=== PATIENT | female | born 1950 | race Caucasian/White ===

== ENCOUNTER 2016-11-16 11:00 | Emergency (ER) | payer MEDICARE ==
[~2016-11-16] VITALS: Ht 167.6 cm; Wt 90.8 kg
[~2016-11-16 11:00] MED LIST: ATOR40TA64 PO; CETI10CA19 PO; CITA-108 PO; DEXL60CA9 PO; DICY10CA52 PO; LEVO100T83 PO; LOSA1TAB18 PO; NITR100C4 PO; POLY255P2 PO; POTA20TA10 PO; TOPI200T45 PO; TRAZ-58 PO
--- OUTSIDE RECORDS SUMMARY | 2016-11-16 11:04 | XMS REPORT | Continuity of Care Document ---
Author Author [facility] Organization [facility] Address Unknown Phone Unavailable Care Team Providers Care Senior Laboratory Technician Name Role Phone SHAMEKA THAKKAR DO Primary Care Physician [phone] Insurance Providers Guarantor Gerald Wynne Address [address] [place] [address] H Email [email or web address] Payer Medicareadunc healthra o Policy Number [id number] Subscriber's Name Gerald Wynne Relationship 18 Self Group Number [id number] Effective Date 16 Chief Complaint and Reason for Visit Chief Complaint Female Urogenital Problems Reason for Visit [id number] Problems Past Problems Medical Problem Onset Date UTI (urinary tract infection) Unknown Medications Current Home Medications Medication Dose Units Route Directions Days Qty Instructions Start Date Atorvastatin Calcium 40 Mg Tablet 1 Tab Oral Bedtime 10/23/15 Cetirizine Hcl (Zyrtec) 10 Mg Capsule 1 Cap Oral Daily 10/23/15 Citalopram Hydrobromide (Celexa) 40 Mg Tablet 60 Mg Oral Daily Dexlansoprazole (Dexilant) 60 Mg Cap.bp 11/15/16 Dicyclomine Hcl 10 Mg Capsule 10 Mg Oral Four Times Daily Levothyroxine Sodium (Synthroid) 100 Mcg Tablet 100 Mcg Oral Daily 08/08/09 Losartan/Hydrochlorothiazide (Hyzaar 50-12.5 Tablet) 1 Tab Tablet 1 Tab Oral Daily 08/08/09 Nitrofurantoin Monohyd/M-Cryst (Macrobid 100 Mg Capsule) 100 Mg Capsule 1 Cap Oral Twice Daily With Meals 5 Days 10 Capsule Take 1 (100 mg) capsules , by mouth, twice daily with meals. Supervising physician Dr. Sergei Franz [facility] [address] [facility] [phone] Polyethylene Glycol 3350 255 Gm Powder 1 Dose Oral Twice A Day 1054 10/23/15 Potassium Chloride (Klor-Con M20) 20 Meq Tablet 11/15/16 Topiramate 200 Mg Tablet 1 Tab Oral Bedtime 30 10/23/15 Trazodone Hcl 100 Mg Tablet 225 Mg Oral Bedtime 08/08/09 Past Home Medications Medication Directions Ordered Status Calcium Carbonate (Gaviscon) 500 Mg Tab.chew, 500 Mg Oral As Needed 01/31/12 Discontinued Esomeprazole Mag Trihydrate (Nexium) 40 Mg Capsule.dr, 40 Mg Oral Daily 08/08 Discontinued Meclizine Hcl (Antivert) 12.5 Mg Tablet, 12.5 Mg Oral As Needed 01/31/12 Discontinued Psyllium Husk/Ca Carbonate (Metamucil Plus Calcium Capsule) 1 Cap Capsule, 5 Cap Oral As Needed 08/08/09 Discontinued Social History Social History Problem Response Recorded Date/Time Onset Date Status Chewing Tobacco Status No 10/02/2012 7:33am Not Applicable Not Applicable Hx Substance Use No 10/23/2015 10:01am Not Applicable Not Applicable Hx Alcohol Use No 10/23/2015 10:01am Not Applicable Not Applicable Has the pt used tobacco in the last 12 months No 10/23/2015 10:01am Not Applicable Not Applicable Hospital Discharge Instructions No hospital discharge instructions. Plan of Care Discharge Date 11/15/16 6:10pm Disposition 01 DISCHARGED HOME, SELF-CARE Condition at Discharge Stable Instructions/Education Provided Urinary Tract Infection in Women (ED) Prescriptions See Medication Section Referrals SHAMEKA THAKKAR DO Address: [address] [place] [address] JYOTHI PACHECO [phone] Additional Instructions/Education Take Macrobid as directed. Continue with increased water intake. Follow with your primary care provider or urologist next week. Functional Status No functional status results. Allergies, Adverse Reactions, Alerts Allergen Type Severity Reaction Status Last Updated No Known Drug Allergies Allergy Unknown Active 11/15/16 Immunizations Query Response on File Recorded Date/Time Hx Influenza Vaccination No 10/23/15 10:01am Hx Pneumococcal Vaccination No 10/23/15 10:01am Hx Tetanus, Diptheria, Pertussis Yes 01/31/12 8:13pm Hx Influenza Vaccination No 10/23/15 10:01am Hx Tetanus Diptheria N UNSURE 01/31/12 8:03pm Hx Tetanus, Diptheria, Pertussis Yes 01/31/12 8:13pm Vital Signs Acute Vital Signs Vital Response Date/Time Temperature (Fahrenheit) 97.2 deg F (96.8 - 99.1) 11/15/2016 6:00pm Temperature (Calculated Celsius) 36.28378 degrees C (36.0 - 37.3) 11/15/2016 6:00pm Pulse Rate (adult) 94 bpm (60 - 100) 11/15/2016 6:00pm Respiratory Rate 20 breaths/min (10 - 20) 11/15/2016 6:00pm O2 Sat by Pulse Oximetry 96 % (90 - 100) 11/15/2016 6:00pm Blood Pressure 116/79 mm Hg 11/15/2016 6:00pm Height (Inches) 66.00 inches 11/15/2016 6:00pm Weight (Kilograms) 95.700 kg 11/15/2016 6:00pm Body Mass Index (BMI) 34.0 11/15/2016 6:00pm Results Laboratory Results Test Name Result Units Flags Reference Collection Date/Time Result Date/ Time Comments Urine Collection Type CLEANCATCH-MIDSTREAM 11/15/2016 6:00pm 2016 6:03pm Urine Color DK YELLOW YELLOW 11/15/2016 6:00pm 11/15/2016 6:03pm Urine Turbidity CLOUDY CLEAR 11/15/2016 6:00pm 11/15/2016 6:03pm Urine Specific Jeannette 1.020 1.015-1.025 11/15/2016 6:00pm 2016 6:03pm Urine pH 5.0 5.0-8.0 11/15/2016 6:00pm 11/15/2016 6:03pm Urine Leukocyte Esterase 2+ A NEGATIVE 11/15/2016 6:00pm 11/15/2016 6: 03pm Urine Nitrite POSITIVE A NEGATIVE 11/15/2016 6:00pm 11/15/2016 6:03pm Urine Protein NEGATIVE NEGATIVE 11/15/2016 6:00pm 11/15/2016 6:03pm Urine Glucose (UA) NEGATIVE NEGATIVE 11/15/2016 6:00pm 11/15/2016 6: 03pm Urine Ketones NEGATIVE NEGATIVE 11/15/2016 6:00pm 11/15/2016 6:03pm Urine Urobilinogen NORMAL EU/DL NORMAL 11/15/2016 6:00pm 11/15/2016 6: 03pm Urine Bilirubin NEGATIVE NEGATIVE 11/15/2016 6:00pm 11/15/2016 6: 03pm Urine Blood 1+ A NEGATIVE 11/15/2016 6:00pm 11/15/2016 6:03pm Procedures No known history of procedures. Encounters Encounter Location Arrival/Admit Date Discharge/Depart Date Attending Provider Departed Emergency Room [facility] 11/15/16 5:40pm 11/15/16 6: 10pm SAM APPIAH APRN Recent Diagnosis
[2016-11-16 11:05] VITALS: Ht 167.6 cm; Wt 90.8 kg
--- OUTSIDE RECORDS SUMMARY | 2016-11-16 11:05 | XMS REPORT | Continuity of Care Document ---
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 12/21/2014 Malcolm Beltre 401.9 HYPERTENSION NOS 12/21/2014 Malcolm Beltre 530.81 ESOPHAGEAL REFLUX 12/21/2014 Malcolm Beltre 553.3 DIAPHRAGMATIC HERNIA 12/21/2014 Malcolm Beltre 564.1 IRRITABLE BOWEL SYNDROME 12/21/2014 Malcolm Beltre 724.02 SPINAL STENOSIS, LUMBAR REG, W/OUT NEUROGENIC QUINN 12/21/2014 Malcolm Beltre 738.4 ACQ SPONDYLOLISTHESIS 12/21/2014 Malcolm Beltre 788.20 RETENTION OF URINE NOS 07/15/2016 Chris Glass DO Z12.2 ENCNTR SCREEN FOR MALIGNANT NEOPLASM OF 07/25/2016 Chris Glass DO Z12.2 ENCNTR SCREEN FOR MALIGNANT NEOPLASM OF 07/30/2016 Chris Glass DO Z12.2 ENCNTR SCREEN FOR MALIGNANT NEOPLASM OF Procedures Code Description Performed By Performed On 78.69 REMOVE INT FIX DEVIC NEC Pernell Isidro MD 12/21/2014 80.51 EXCISION INTERVERT DISC Malcolm Beltre 12/21/2014 81.06 LUMBAR LUMBOSACRAL FUSION OF ANTERIOR COLUMN/BARB Malcolm Beltre 12/21/2014 81.62 FUSION/REFUS OF 2-3 VERTEBRAE Malcolm Beltre 12/21/2014 84.51 INSERTION OF INTERBODY SPINAL FUSION DEVICE Pernell Isidro MD 12/21/2014 Results Test Result Range MRSA SURVEILLANCE SCREEN - 12/14/14 12:01 Microbiology POTASSIUM - 12/21/14 10:35 POTASSIUM 3.7 mmol/L 3.5-5.3 HGB HCT - 12/21/14 17:10 MEAN CELL VOLUME 90.1 fl 80.0-100.0 HEMOGLOBIN 12.5 gm/dL 12.0-16.0 HEMATOCRIT 36.3 % 37.0-47.0 CBC - 12/22/14 05:37 MEAN CELL HGB 31.0 pg 27.0-33.0 MEAN CELL HGB CONCENTRATION 34.4 g/dL 32.0-37.0 MEAN CELL VOLUME 90.1 fl 80.0-100.0 RED BLOOD CELL 3.94 m/cumm 4.00-6.00 RED CELL DISTRIBUTION WIDTH 13.3 % 11.0- 15.6 WHITE BLOOD CELL 13.3 k/cumm 5.0-10.0 HEMOGLOBIN 12.2 gm/dL 12.0-16.0 HEMATOCRIT 35.5 % 37.0-47.0 PLATELET COUNT 231 k/cumm 150-400 METABOLIC PANEL, BASIC - 12/22/14 05:37 POTASSIUM 3.8 mmol/L 3.5-5.3 EST GFR (MDRD) > 60 mL/min > 59 ANION GAP 6 mmol/L 5-15 EST CrCl (CG) > 60 mL/min > 59 GLUCOSE 130 mg/dL 70-99 CALCIUM 8.4 mg/dL 8.5-10.1 BLOOD UREA NITROGEN 8 mg/dL 7-20 CREATININE 0.7 mg/dL 0.6-1.0 SODIUM 143 mmol/L 135-148 CHLORIDE 109 mmol/L 98-110 CARBON DIOXIDE 28 mmol/L 21-32 CBC W/DIFF - 12/23/14 05:33 GRANULOCYTE # 12.5 k/cumm 2.0-9.0 GRANULOCYTE % 81 % 50-75 LYMPHOCYTE # 1.2 k/cumm 1.0-4.0 LYMPHOCYTE % 8 % 20-30 MEAN CELL HGB 30.3 pg 27.0-33.0 MEAN CELL HGB CONCENTRATION 33.3 g/dL 32.0-37.0 MEAN CELL VOLUME 90.9 fl 80.0-100.0 MONOCYTE # 1.7 k/cumm 0.1-1.0 MONOCYTE % 11 % 4-6 RED BLOOD CELL 3.86 m/cumm 4.00-6.00 RED CELL DISTRIBUTION WIDTH 13.4 % 11.0- 15.6 WHITE BLOOD CELL 15.4 k/cumm 5.0-10.0 HEMOGLOBIN 11.7 gm/dL 12.0-16.0 HEMATOCRIT 35.1 % 37.0-47.0 PLATELET COUNT 202 k/cumm 150-400 RENAL FUNCTION PANEL - 12/23/14 05:33 POTASSIUM 3.3 mmol/L 3.5-5.3 EST GFR (MDRD) > 60 mL/min > 59 ANION GAP 8 mmol/L 5-15 EST CrCl (CG) > 60 mL/min > 59 GLUCOSE 132 mg/dL 70-99 CALCIUM 8.3 mg/dL 8.5-10.1 BLOOD UREA NITROGEN 7 mg/dL 7-20 CREATININE 0.9 mg/dL 0.6-1.0 SODIUM 142 mmol/L 135-148 CHLORIDE 105 mmol/L 98-110 CARBON DIOXIDE 29 mmol/L 21-32 ALBUMIN 2.8 gm/dL 3.4-5.0 PHOSPHORUS 1.4 mg/dL 2.5-4.9 MAGNESIUM - 12/23/14 05:33 MAGNESIUM 2.1 mg/dL 1.8-2.4 URINALYSIS, ROUTINE - 12/24/14 02:10 UA LEUKOCYTE ESTERASE DIPSTICK NEGATIVE NEGATIVE UA NITRITE DIPSTICK NEGATIVE NEGATIVE UA PROTEIN DIPSTICK NEGATIVE NEGATIVE UA GLUCOSE DIPSTICK NEGATIVE NEGATIVE UA KETONE DIPSTICK 1+ NEGATIVE UA UROBILINOGEN DIPSTICK NORMAL NORMAL UA BILIRUBIN DIPSTICK NEGATIVE NEGATIVE UA BLOOD DIPSTICK NEGATIVE NEGATIVE UA SPECIFIC GRAVITY 1.008 1.015-1.025 UR PH 7.0 5.0-7.0 CBC W/DIFF - 12/24/14 07:19 GRANULOCYTE # 12.2 k/cumm 2.0-9.0 GRANULOCYTE % 85 % 50-75 LYMPHOCYTE # 1.1 k/cumm 1.0-4.0 LYMPHOCYTE % 7 % 20-30 MEAN CELL HGB 31.3 pg 27.0-33.0 MEAN CELL HGB CONCENTRATION 34.7 g/dL 32.0-37.0 MEAN CELL VOLUME 90.2 fl 80.0-100.0 MONOCYTE # 1.0 k/cumm 0.1-1.0 MONOCYTE % 7 % 4-6 RED BLOOD CELL 3.36 m/cumm 4.00-6.00 RED CELL DISTRIBUTION WIDTH 13.0 % 11.0- 15.6 WHITE BLOOD CELL 14.4 k/cumm 5.0-10.0 HEMOGLOBIN 10.5 gm/dL 12.0-16.0 HEMATOCRIT 30.3 % 37.0-47.0 PLATELET COUNT 206 k/cumm 150-400 RENAL FUNCTION PANEL - 12/24/14 07:19 POTASSIUM 3.3 mmol/L 3.5-5.3 EST GFR (MDRD) > 60 mL/min > 59 ANION GAP 5 mmol/L 5-15 EST CrCl (CG) > 60 mL/min > 59 GLUCOSE 130 mg/dL 70-99 CALCIUM 8.1 mg/dL 8.5-10.1 BLOOD UREA NITROGEN 8 mg/dL 7-20 CREATININE 0.7 mg/dL 0.6-1.0 SODIUM 141 mmol/L 135-148 CHLORIDE 106 mmol/L 98-110 CARBON DIOXIDE 30 mmol/L 21-32 ALBUMIN 2.4 gm/dL 3.4-5.0 PHOSPHORUS 1.8 mg/dL 2.5-4.9 MAGNESIUM - 12/24/14 07:19 MAGNESIUM 2.1 mg/dL 1.8-2.4 CBC W/DIFF - 12/25/14 07:04 COMMENT REVIEWED EOSINOPHIL # 0.1 k/cumm 0.1-0.5 EOSINOPHIL % 1 % 2-4 GRANULOCYTE # 9.6 k/cumm 2.0-9.0 GRANULOCYTE % 79 % 50-75 LYMPHOCYTE # 1.6 k/cumm 1.0-4.0 LYMPHOCYTE % 13 % 20-30 MEAN CELL HGB 31.0 pg 27.0-33.0 MEAN CELL HGB CONCENTRATION 34.2 g/dL 32.0-37.0 MEAN CELL VOLUME 90.4 fl 80.0-100.0 MONOCYTE # 0.9 k/cumm 0.1-1.0 MONOCYTE % 7 % 4-6 RED BLOOD CELL 3.23 m/cumm 4.00-6.00 RED CELL DISTRIBUTION WIDTH 13.0 % 11.0- 15.6 WHITE BLOOD CELL 12.2 k/cumm 5.0-10.0 HEMOGLOBIN 10.0 gm/dL 12.0-16.0 HEMATOCRIT 29.2 % 37.0-47.0 PLATELET COUNT 237 k/cumm 150-400 RENAL FUNCTION PANEL - 12/25/14 07:04 POTASSIUM 3.3 mmol/L 3.5-5.3 EST GFR (MDRD) > 60 mL/min > 59 ANION GAP 9 mmol/L 5-15 EST CrCl (CG) > 60 mL/min > 59 GLUCOSE 113 mg/dL 70-99 CALCIUM 8.2 mg/dL 8.5-10.1 BLOOD UREA NITROGEN 10 mg/dL 7-20 CREATININE 0.7 mg/dL 0.6-1.0 SODIUM 141 mmol/L 135-148 CHLORIDE 104 mmol/L 98-110 CARBON DIOXIDE 28 mmol/L 21-32 ALBUMIN 2.3 gm/dL 3.4-5.0 PHOSPHORUS 2.6 mg/dL 2.5-4.9 MAGNESIUM - 12/25/14 07:04 MAGNESIUM 2.2 mg/dL 1.8-2.4 CBC W/DIFF - 12/26/14 06:37 BASOPHIL # 0.1 k/cumm 0.0-0.2 BASOPHIL % 1 % 0-1 EOSINOPHIL # 0.2 k/cumm 0.1-0.5 EOSINOPHIL % 2 % 2-4 GRANULOCYTE # 6.8 k/cumm 2.0-9.0 GRANULOCYTE % 70 % 50-75 LYMPHOCYTE # 1.8 k/cumm 1.0-4.0 LYMPHOCYTE % 18 % 20-30 MEAN CELL HGB 30.7 pg 27.0-33.0 MEAN CELL HGB CONCENTRATION 34.2 g/dL 32.0-37.0 MEAN CELL VOLUME 89.9 fl 80.0-100.0 MONOCYTE # 0.9 k/cumm 0.1-1.0 MONOCYTE % 9 % 4-6 RED BLOOD CELL 3.55 m/cumm 4.00-6.00 RED CELL DISTRIBUTION WIDTH 13.1 % 11.0- 15.6 WHITE BLOOD CELL 9.7 k/cumm 5.0-10.0 HEMOGLOBIN 10.9 gm/dL 12.0-16.0 HEMATOCRIT 31.9 % 37.0-47.0 PLATELET COUNT 303 k/cumm 150-400 RENAL FUNCTION PANEL - 12/26/14 06:38 POTASSIUM 3.4 mmol/L 3.5-5.3 EST GFR (MDRD) > 60 mL/min > 59 ANION GAP 9 mmol/L 5-15 EST CrCl (CG) > 60 mL/min > 59 GLUCOSE 105 mg/dL 70-99 CALCIUM 8.4 mg/dL 8.5-10.1 BLOOD UREA NITROGEN 8 mg/dL 7-20 CREATININE 0.8 mg/dL 0.6-1.0 SODIUM 143 mmol/L 135-148 CHLORIDE 109 mmol/L 98-110 CARBON DIOXIDE 25 mmol/L 21-32 ALBUMIN 2.5 gm/dL 3.4-5.0 PHOSPHORUS 3.2 mg/dL 2.5-4.9 MAGNESIUM - 12/26/14 06:38 MAGNESIUM 2.2 mg/dL 1.8-2.4 CBC W/DIFF - 12/27/14 06:13 BASOPHIL # 0.1 k/cumm 0.0-0.2 BASOPHIL % 1 % 0-1 COMMENT REVIEWED EOSINOPHIL # 0.2 k/cumm 0.1-0.5 EOSINOPHIL % 2 % 2-4 GRANULOCYTE # 6.9 k/cumm 2.0-9.0 GRANULOCYTE % 71 % 50-75 LYMPHOCYTE # 1.6 k/cumm 1.0-4.0 LYMPHOCYTE % 16 % 20-30 MEAN CELL HGB 30.6 pg 27.0-33.0 MEAN CELL HGB CONCENTRATION 34.1 g/dL 32.0-37.0 MEAN CELL VOLUME 89.8 fl 80.0-100.0 MONOCYTE # 0.9 k/cumm 0.1-1.0 MONOCYTE % 9 % 4-6 POLYCHROMASIA NOTED RED BLOOD CELL 3.82 m/cumm 4.00-6.00 RED CELL DISTRIBUTION WIDTH 13.3 % 11.0- 15.6 WHITE BLOOD CELL 9.8 k/cumm 5.0-10.0 HEMOGLOBIN 11.7 gm/dL 12.0-16.0 HEMATOCRIT 34.3 % 37.0-47.0 PLATELET COUNT 335 k/cumm 150-400 RENAL FUNCTION PANEL - 12/27/14 06:13 POTASSIUM 3.3 mmol/L 3.5-5.3 EST GFR (MDRD) > 60 mL/min > 59 ANION GAP 12 mmol/L 5-15 EST CrCl (CG) > 60 mL/min > 59 GLUCOSE 117 mg/dL 70-99 CALCIUM 8.9 mg/dL 8.5-10.1 BLOOD UREA NITROGEN 9 mg/dL 7-20 CREATININE 0.8 mg/dL 0.6-1.0 SODIUM 143 mmol/L 135-148 CHLORIDE 111 mmol/L 98-110 CARBON DIOXIDE 20 mmol/L 21-32 ALBUMIN 2.7 gm/dL 3.4-5.0 PHOSPHORUS 3.1 mg/dL 2.5-4.9 MAGNESIUM - 12/27/14 06:13 MAGNESIUM 3.0 mg/dL 1.8-2.4 CBC W/DIFF - 12/28/14 04:34 BASOPHIL # 0.1 k/cumm 0.0-0.2 BASOPHIL % 1 % 0-1 EOSINOPHIL # 0.3 k/cumm 0.1-0.5 EOSINOPHIL % 2 % 2-4 GRANULOCYTE # 6.6 k/cumm 2.0-9.0 GRANULOCYTE % 62 % 50-75 LYMPHOCYTE # 2.5 k/cumm 1.0-4.0 LYMPHOCYTE % 23 % 20-30 MEAN CELL HGB 30.7 pg 27.0-33.0 MEAN CELL HGB CONCENTRATION 34.1 g/dL 32.0-37.0 MEAN CELL VOLUME 89.9 fl 80.0-100.0 MONOCYTE # 1.0 k/cumm 0.1-1.0 MONOCYTE % 10 % 4-6 RED BLOOD CELL 3.75 m/cumm 4.00-6.00 RED CELL DISTRIBUTION WIDTH 13.5 % 11.0- 15.6 WHITE BLOOD CELL 10.6 k/cumm 5.0-10.0 HEMOGLOBIN 11.5 gm/dL 12.0-16.0 HEMATOCRIT 33.7 % 37.0-47.0 PLATELET COUNT 372 k/cumm 150-400 RENAL FUNCTION PANEL - 12/28/14 04:34 POTASSIUM 3.2 mmol/L 3.5-5.3 EST GFR (MDRD) > 60 mL/min > 59 ANION GAP 9 mmol/L 5-15 EST CrCl (CG) > 60 mL/min > 59 GLUCOSE 96 mg/dL 70-99 CALCIUM 8.6 mg/dL 8.5-10.1 BLOOD UREA NITROGEN 9 mg/dL 7-20 CREATININE 0.7 mg/dL 0.6-1.0 SODIUM 142 mmol/L 135-148 CHLORIDE 110 mmol/L 98-110 CARBON DIOXIDE 23 mmol/L 21-32 ALBUMIN 2.7 gm/dL 3.4-5.0 PHOSPHORUS 3.3 mg/dL 2.5-4.9 MAGNESIUM - 12/28/14 04:34 MAGNESIUM 2.3 mg/dL 1.8-2.4 Encounters ACCT No. Visit Date/Time Discharge Status Pt. Type Provider Facility Loc./Unit Complaint [id number] 07/28/2013 15:13:00 07/28/2013 23 :59:59 CLS Outpatient
[2016-11-16] MEDS ORDERED: CITA20TA9 PO (11:09)
[2016-11-16] MEDS ORDERED: TRAZ-170 PO (11:09)
--- OUTSIDE RECORDS SUMMARY | 2016-11-16 11:22 | XMS REPORT | Continuity of Care Document ---
Author Author [facility] Organization [facility] Address Unknown Phone Unavailable Allergies Active Description [...] Status Pt. Type Provider Facility Loc./Unit Complaint [id number] 07/28/2013 15:13:00 07/28/2013 23 :59:59 CLS Outpatient
--- NOTE | 2016-11-16 13:39 | ERPDOC ---
Departure Disposition Decision Date: Nov 16, 2016 Disposition Decision Time: 14:54 Disposition: 01 DISCHARGED HOME, SELF-CARE Impression Impression Impression: Primary Impression: Sciatica Laterality: left Qualified Codes: M54.32 - Sciatica, left side Severity: Moderate Condition: Improved Seen By: Physician only Referrals: SHAMEKA THAKKAR DO (Family) Patient Instructions: Sciatica (ED) Problems/Meds/Labs Reviewed?: Yes Medications reviewed and manag: Yes Follow up care ordered?: Yes Mental Status: Alert, Oriented Scripts Oxycodone HCl/Acetaminophen (Percocet 5-325 mg Tablet) 5-325 Tablet 1 TAB PO Q4HR Y for PAIN for 3 Days, #18 TAB 0 Refills Prov: JULIETA DAVIS 11/16/16 HPI - General Medical General Chief Complaint: Lower Extremity Pain Stated Complaint: L LEG PAIN Time Seen by Provider: 11:10 Source: patient Exam Limitations: no limitations HPI - General Medical Initial Comments 66-year-old female presents to the emergency department with a chief complaint of low back pain. Patient notes that the pain radiates down her left leg. Patient has a history of similar symptoms in the past with sciatica. Patient states she has been more physical than normal lately. She denies any trauma or injury. Patient's pain is moderate. Pain is dull. Pain increases with movement and improves with rest and positioning. Patient denies any other complaints or associated symptoms. Patient was at home when her symptoms began. Symptoms have been persistent in nature since onset. Patient does note that she has a CT myelogram scheduled for similar symptoms on Friday of this coming week. Patient denies any focal weakness, fever, chills, abdominal pain, anticoagulation, recent procedures on the spine, IV drug abuse, numbness, tingling, saddle anesthesia, loss of bowel or bladder control or other warning signs of back pain. Occurred At: home Onset: Gradual Allergies: Coded Allergies: No Known Drug Allergies (Verified Allergy, Unknown, 11/15/16) Past History Past Medical History Metabolic: hypertension, hypothyroidism ENMT: allergies, other GI: GERD, constipation Psychological: depression Surgical History General: back, other Family History Family History: Negative Vaccines Hx Influenza Vaccination: No Hx Pneumococcal Vaccination: No Hx Tetanus Diptheria: No (UNSURE) Hx Tetanus, Diptheria, Pertuss: Yes Social History Smoking Status: Never smoker Substance Use Type: does not use Alcohol Intake: none Review of Systems Constitutional Constitutional: DENIES: chills, fever Eyes General: DENIES: erythema, exudate Lids/Accessories: DENIES: erythema, swelling Vision: DENIES: acuity, blurring ENMT Ears: DENIES: drainage, pain Hearing: DENIES: hearing loss Balance: DENIES: ataxia, falling to one side Sinuses: DENIES: congestion, pain Nose: DENIES: nosebleeds, pain Mouth/Throat: DENIES: painful swallowing, sore throat Teeth: DENIES: pain Jaw: DENIES: pain Cardiovascular Cardiac: DENIES: chest pain, dyspnea on exertion Rhythm/Rate: DENIES: irregular beat, palpitations Vascular: DENIES: pedal edema, unilateral swelling Pulmonary Respiratory: DENIES: cough, dyspnea, pleuritic chest pain, sputum GI Upper Abdomen: DENIES: nausea, pain, vomiting Lower Abdomen: DENIES: diarrhea, pain General: DENIES: dysuria, pain Musculoskeletal General: pain, tenderness, DENIES: joint pain Integumentary Skin: DENIES: itching, rash Neurological General: DENIES: headache, numbness, weakness Psychiatric Psychiatric: DENIES: emotional instability, suicidal ideation/attempt Endocrine Endocrine: DENIES: polydipsia, polyphagia Hematologic/Lymphatic Hematologic/Lymphatic: DENIES: frequent nosebleeds, lymphadenopathy Allergic/Immunological Allergic/Immunoligical: DENIES: frequent infections, hives Physical Exam General General Nourishment: well nourished, well developed, appears stated age, no acute distress, adult General Body Habitus: well groomed Vitals and Pain First Documented Vital Signs Date Time Temp Pulse Resp B/P Pulse Ox O2 Delivery O2 Flow Rate FiO2 11/16/16 11:05 97.8 70 18 180/90 94 Room Air Weight: Kilograms: 90.800 Height (feet): 5 Height (inches): 6.00 Triage Pain Scale: RN VS reviewed by Provider: Yes Normal Exams: Head: Normocephalic w/o trauma Eyes: Pupils are PERRLA w/ EOMI, No scleral icterus, irritation, or foreign bodies noted Dental: No fractured, loose, or missing teeth noted Neck: Full range of motion, without adenopathy, JVD, bruits or thyromegaly Chest/Resp: Clear all mcdaniel, with good airflow, and symmetry bilaterally CV: Regular rate and rhythm, without murmur or gallop, Pulses 2+ all extremities, capillary refill, <2 seconds all ext., no pedal edema noted Abdomen: Bowel sounds positive, soft, non-tender, non-distended, no hepatosplenomegaly, masses or bruits noted Lymphatic: No lymphadenopathy, or lymphedema noted Musculoskeletal: No tenderness, or deformity noted, good range of motion, all extremities Integumentary: No rashes, hives, or bruising noted, hair and nails, without abnormality Neurologic: Patient is alert, and oriented, cranial nerves, motor/sensory/ cerebellar, exams w/o gross deficits, to observation Psychiatric: Patient exhibits, appropriate attention, emotion and affect Musculoskeletal (brief) Comments Back - all range of motion. No midline tenderness or deformity. Positive tenderness to palpation over the SI joint on the left. Positive straight leg raise on the left. Neurologic (brief) Comments Alert and oriented 4. CN 2-12 intact. Sensation intact. Strength normal. Normal coordination. Normal motor. Normal gait. Reflexes 2/4 in all extremities. Absent Babinski bilaterally. No focal neurologic deficit. Candelaria speech. Differential Diagnoses Considering: Other (sprain/strain/fracture/contusion) Progress Results/Orders Orders Procedure Category Date Status Time Ct Lumbar Spine W/O CT 11/16/16 Resulted Contrast 11:38 Progress Progress Imaging is discussed in detail with the patient and questions are answered. Patient declines offered analgesic pain medication in the emergency Department. Patient is discharged home in improved condition. Patient is to follow up as instructed. Patient's return to the emergency Department if her condition worsens or changes in any manner. Patient is agreement with the current plan of management. Patient's CT scan was reviewed with Dr. Mott of neurosurgery who is in agreement with the current plan of management. Patient is to follow up as instructed. Prescription for Percocet is provided. CT CT : CT: Other Interpretation: Abnormal, Reviewed Written Report (old L1 compression fracture. Stenosis L2-L3. Mild stenosis L1-L2. Multilevel postsurgical changes noted. No acute processes.) JULIETA DAVIS DO Nov 16, 2016 13:39
[2016-11-16] MEDS ORDERED: OXYC1TAB8 PO (14:55)
[2016-11-16 15:40] VITALS: BP 156/85; PULSE 68; RESP 16; TEMP 97.8; O2SAT 95
--- NOTE | 2016-11-17 09:24 | DI ---
Indication: ITS.REASON: pain PROCEDURE: CT LUMBAR SPINE W/O CONTRAST: Encounter: Initial Comparison: June 23, 2014 Technique: Axial noncontrast CT imaging of the lumbar spine was performed with coronal and sagittal two-dimensional reformats. Automated Exposure Control and Iterative Reconstruction dose reducing techniques were utilized. FINDINGS: Anterior and posterior spinal fusion with pedicle screws and rods at L3, L4 and S1. The S1 level has an abandoned screw on the right. The other hardware appears intact without evidence of loosening or failure. Interbody bone cage at the L3-L4 level. There is new mild superior endplate compression deformity at L1, although it appears chronic. The remaining lumbar vertebral body heights are maintained. Alignment is unchanged. Diffuse degenerative changes described on prior studies with areas of central canal and neural foraminal stenosis. Severe central canal stenosis at the junctional L2-L3 level. Fluid in the endometrial canal which is atypical in a patient of this age. Impression: 1. New L1 superior endplate fracture with a subacute to chronic appearance. Postoperative and degenerative changes with severe central canal stenosis at L2-L3. MRI may be helpful for further evaluation as clinically indicated. 2. Endometrial canal fluid. Suggest pelvic ultrasound for more detailed evaluation. There is a preliminary report by [facility]. .
[2016-11-19] MEDS ORDERED: CITA40TA14 PO (10:41)
== END 2016-11-16 15:40 | disposition home or self-care (01) ==
LOC: ED 11:00
DX: M54.42 Lumbago with sciatica, left side (principal)

== ENCOUNTER 2016-11-20 06:36 | Outpatient (CLI) | payer MEDICARE ==
[~2016-11-20] VITALS: Ht 167.6 cm; Wt 92.8 kg
[2016-11-20] VITALS (9 sets, daily range): BP systolic 126–162; BP diastolic 67–92; PULSE 66–76; RESP 14–16; TEMP 97.2; O2SAT 92–96
[~2016-11-20 06:36] MED LIST changes: -CITA-108 PO; +CITA20TA9 PO; +CITA40TA14 PO; +OXYC1TAB8 PO; +TRAZ-170 PO
[2016-11-20 07:52] LABS: INR 1.19 (0.76-1.04)
[2016-11-20] MEDS ORDERED: IOHEXOL 300 MG/ML 50ml INJECTION ONE (08:51)
--- NOTE | 2016-11-20 09:05 | NUR ---
LEFT FLOOR PT LEFT FLOOR AT THIS TIME, VIA WHEELCHAIR WITH IMAGING STAFF. PT ALERT AND ORIENTED X3. VITAL SIGNS STABLE.
--- NOTE | 2016-11-20 10:10 | NUR ---
ARRIVED TO FLOOR PT ARRIVED BACK TO FLOOR AT THIS TIME. PT ALERT AND ORIENTED X3. POST-OP VITAL SIGNS STARTED, WILL CONTINUE TO MONITOR.
--- NOTE | 2016-11-20 10:42 | DI ---
Indication: ITS.REASON: M54.5 low back pain PROCEDURE: CT MYELOGRAM LUMBAR SPINE: Encounter: Initial Comparison: Lumbar spine CT dated November 16, 2016 Technique: Axial CT imaging through the lumbar spine was performed after the administration of intrathecal contrast. The myelogram injection is described in a separate procedural report. Coronal and sagittal two-dimensional reformats. Automated Exposure Control and Iterative Reconstruction dose reducing techniques were utilized. Findings: Alignment lumbar spine is stable from the very recent comparison exam. Superior endplate deformity is again noted in the L1 vertebra. Spinal fusion hardware is seen with an interbody bone cage at the L3-L4 level. Posterior pedicle screws and rods at the L3 and L4 levels within a band and screw at the S1 level. There is evidence of a myelographic block at the L2-L3 level with minimal contrast seen in the central canal above this level. Fluid is redemonstrated in the endometrial canal. Paraspinal soft tissues are otherwise unremarkable. Segmental analysis: T10-T11: Normal T11-T12: Normal T12-L1: Normal L1-L2: Degenerative facet change without focal central disk protrusion or central canal stenosis. No significant neural foraminal stenosis. L2-L3: Degenerative facet hypertrophy with ligamentum flavum thickening, broad-based disk bulge and superimposed central protrusion causes very severe central canal stenosis nearly obliterating the thecal sac causing a myelographic block. Degenerative facet disease contributing to moderate left and mild right neural foraminal stenosis. L3-L4: Metallic artifact without focal disk protrusion or gross central canal stenosis. Mild bony left foraminal narrowing. No significant right foraminal stenosis. L4-L5: Posterior decompression. No focal disk protrusion. Bony hypertrophy contributing to mild right and moderate left neural foraminal stenosis. L5-S1: Posterior decompression. No focal disk herniation. Degenerative facet disease and lateral osteophytes causing moderate bilateral neural foraminal stenosis. Impression: Severe central canal stenosis at L2-L3 causing a myelographic block. .
[2016-11-20] MEDS ORDERED: ACETAMINOPHEN 325 MG TABLET PO PRN (10:45)
--- NOTE | 2016-11-20 11:36 | DI ---
INDICATION: ITS.REASON: M54.5 LBP Ordering physician: Dr. Beltre Procedure:MYELOGRAM LUMBAR INJECTION FOR CT MYELOGRAM: The procedure including the benefits, risks, and alternatives were explained in detail to the patient. All of their questions were answered. She stated that she understood and wished to proceed. Informed consent was obtained. A preprocedural timeout was performed to confirm the correct patient and procedure. Using sterile technique, local Xylocaine anesthesia, and fluoroscopic guidance throughout, a 22 G spinal needle was advanced from a posterior approach into the subarachnoid space at the L5 level. A fluoroscopic image was then obtained and archived. Removal of the stylet showed clear colorless CSF. 13 cc of Omnipaque 300 was slowly instilled within the intrathecal space. The needle was then removed. Fluoroscopic images were then obtained. Following this, the patient was transferred to the CT department for their scan. There is a tight central canal stenosis seen at the junctional L2-L3 level, better evaluated on the CT study. Please see the separate CT report. Impression: Successful contrast injection into the intrathecal space for a CT lumbar myelogram. Fluoroscopy dose: 28.75 mGy (Cumulative air kerma) Wes Ivy RPA/TORIE performed this under my personal supervision. .
--- NOTE | 2016-11-20 14:52 | NUR ---
DISCHARGE NURSING NOTE PT WAS DISCHARGED FROM THE HOSPITAL AT THIS TIME, VIA WHEELCHAIR, FROM THE EMERGENCY ROOM EXIT. THE PT VITAL SIGNS ARE STABLE, ON RA. PT IS ALERT AND ORIENTED X3. THIS RN WENT OVER DISCHARGE INSTRUCTIONS WITH THE PT INCLUDING DISCHARGE DIET, ACTIVITY, MEDICATIONS, AND FOLLOW-UP APPOINTMENTS. PT VERBALIZED UNDERSTANDING. ALL BELONGINGS SENT WITH THE PT. NO CONCERNS NOTED AT TIME OF DISCHARGE.
== END 2016-11-20 14:52 | disposition home or self-care (01) ==
LOC: IMA 06:36 → SRG 06:53 → IMA 14:52
PROVIDERS: ATTEND Radiology Diagnostic Radiology
DX: M48.06 Spinal stenosis, lumbar region (principal); M51.06 Intervertebral disc disorders with myelopathy, lumbar region; M47.16 Other spondylosis with myelopathy, lumbar region; M47.27 Other spondylosis with radiculopathy, lumbosacral region; M54.5 Low back pain; Z51.81 Encounter for therapeutic drug level monitoring
CPT/HCPCS: 36415; 62304; 72132; 85049; 85610; A9270; Q9967

== ENCOUNTER 2017-05-15 11:21 | Observation (INO) ==
[2017-05-15] MEDS ORDERED: KETOROLAC 60 MG/2 ML INJECTION IM ONE (11:49)
[2017-05-15] MEDS ORDERED: Oxycodone/Acetaminophen 5/325 1 TAB PO ONE (13:26)
--- NOTE | 2017-05-15 14:20 | Emergency Department Report ---
Headache HPI - General Chief Complaint: Headache Stated Complaint: headache Time Seen by Provider: 05/15/17 11:49 - History of Present Illness HPI Narrative: 67-year-old female presents with headache. Patient was seen yesterday for similar complaints in the ED. CT scan of head was performed at that time and was negative. She has had reoccurrence of the headache this morning and called EMS to drive her back to the ED. She is speaking very quietly, does not engage in conversation well, states she can't remember most things. However when asked specifics, she is able to answer. She denies fever or chills, no head trauma. No syncope. Chart from yesterday is reviewed. - Related Data Home Medications Medication Instructions Recorded Confirmed Dicyclomine HCl 10 mg PO QID #0 08/08/09 05/15/17 Levothyroxine Tab [Synthroid] 100 mcg PO DAILY #0 08/08/09 05/15/17 Cetirizine HCl [Zyrtec] 10 mg PO DAILY #0 10/23/15 05/15/17 Polyethylene Glycol 3350 1 dose PO DAILY #0 10/23/15 05/15/17 Topiramate 200 mg PO HS #0 10/23/15 05/15/17 Dexlansoprazole [Dexilant] 60 mg PO DAILY #0 11/15/16 05/15/17 Potassium Chloride [K-Dur] 20 meq PO DAILY #0 11/15/16 05/15/17 Citalopram Hydrobromide 20 mg PO DAILY #0 11/16/16 05/15/17 [Citalopram HBr] Trazodone HCl 200 mg PO HS PRN #0 11/16/16 05/15/17 Citalopram Hydrobromide [Celexa] 40 mg PO DAILY #0 tab 11/19/16 05/15/17 Aspirin 650 mg PO BID PRN 05/15/17 05/15/17 Cranberry Fruit Extract [Cranberry] 500 mg PO DAILY 05/15/17 05/15/17 Losartan [Cozaar] 50 mg PO DAILY 05/15/17 05/15/17 Previous Rx's Medication Instructions Recorded Tramadol [Ultram] 50 mg PO Q6HR PRN #20 tab 05/14/17 Allergies Allergy/AdvReac Type Severity Reaction Status Date / Time Quinolones Allergy Intermediate Verified 05/15/17 11:25 ciprofloxacin [From Cipro] Allergy Mild Verified 05/15/17 11:25 Review of Systems All systems: reviewed and negative except as stated PFSH Patient Stated Medical History Migraine Yes Hypertension Yes Gastroesophageal Reflux Yes Disease Depression Yes Post Menopausal Yes Clinic Medical History (Last Reviewed 05/02/17 @ 14:22 by MAT Alexander) Back problem (Acute Medical) Colon polyps (Acute Medical) Depression (Acute Medical) GERD (gastroesophageal reflux disease) (Acute Medical) Hypercholesterolemia (Acute Medical) Hypertension (Acute Medical) Hypothyroidism (Acute Medical) Spinal stenosis (Acute Medical) Surgical History: *Colonoscopy with polypectomy. *Tubal Ligation x2. *EGD. * Back Surgery x2 - Social History Smoking status: Never smoker Substance use type: does not use Alcohol intake frequency: does not drink Physical Exam - Limitations Limitations: other (patient unwilling to engage in most questions.) - General General appearance: alert, in no apparent distress - Normal Exams: Head:: Normocephalic without trauma Chest/Respirations:: Clear all mcdaniel, with good airflow, and symmetry bilaterally Cardiovascular:: Regular rate and rhythm, without murmur or gallop, Pulses 2+ all extremities, capillary refill, <2 seconds all extremities Abdomen:: Bowel sounds positive, soft, non-tender, non-distended, no hepatosplenomegaly, masses or bruits noted Musculoskeletal:: No tenderness, or deformity noted, all extremities Neurological:: Patient is alert, and oriented, cranial nerves, motor/sensory/ cerebellar, exams w/o gross deficits, to observation - Psychiatric Psychiatric exam: Present: depressed, flat affect Course Vital Signs Temperature 97.5 F 05/15/17 11:25 Pulse Rate 72 05/15/17 11:25 Respiratory Rate 16 05/15/17 11:25 Blood Pressure 179/82 H 05/15/17 11:25 Pulse Oximetry 95 05/15/17 11:25 Temperature 97.5 F 05/15/17 11:25 Pulse Rate 72 05/15/17 11:25 Respiratory Rate 16 05/15/17 11:25 Blood Pressure 179/82 H 05/15/17 11:25 Pulse Oximetry 95 05/15/17 11:25 Headache - MDM Narrative Medical decision making narrative: Old chart reviewed including yesterday's visit. Patient had an excellent workup and I do not want to repeat unnecessarily. She does not need a repeat head CT at this time. She was given Toradol 60 mg IM which brought her pain from a 10 to an 8, she was then given Percocet 5 mg, 2 tablets which brought her pain to 4. She is being discharged to follow-up with her primary care provider. - Differential Diagnosis Differential diagnosis: Likely: migraine - Medical Records Attestation: I reviewed the patient's medical records. Disposition Clinical Impression: Headache Disposition: Discharged Home, Self-Care Condition: Stable Instructions: General Headache (ED) Additional Instructions: Follow-up with your primary care provider. Prescriptions: No Action Dicyclomine HCl 10 mg PO QID #0 Dexlansoprazole [Dexilant] 60 mg PO DAILY #0 Trazodone HCl 200 mg PO HS PRN #0 PRN Reason: INSOMNIA Citalopram Hydrobromide [Celexa] 40 mg PO DAILY #0 tab Tramadol [Ultram] 50 mg PO Q6HR PRN #20 tab PRN Reason: Pain Losartan [Cozaar] 50 mg PO DAILY Cranberry Fruit Extract [Cranberry] 500 mg PO DAILY Levothyroxine Tab [Synthroid] 100 mcg PO DAILY #0 Cetirizine HCl [Zyrtec] 10 mg PO DAILY #0 Topiramate 200 mg PO HS #0 Polyethylene Glycol 3350 1 dose PO DAILY #0 Potassium Chloride [K-Dur] 20 meq PO DAILY #0 Citalopram Hydrobromide [Citalopram HBr] 20 mg PO DAILY #0 Aspirin 650 mg PO BID PRN PRN Reason: Pain Referrals: Chris Glass DO [Primary Care Provider] - Time of Disposition: 14:21 - Seen By: physician
--- NOTE | 2017-05-15 15:31 | CT Scan Report ---
Indication: Headache for two days PROCEDURE: CT head/brain wo con: Encounter: Initial Comparison: May 14, 2017 Technique: Axial CT images through the head were performed without contrast. Iterative Reconstruction dose reducing technique was utilized. FINDINGS: Bilateral areas of thalamic probable calcification are again noted. The ventricles are of normal size, shape, and contour for the patient's age. The brainstem, cerebellum, and cerebral hemispheres otherwise have a normal morphology and CT attenuation. There is no evidence of midline displacement. No hemorrhage, signs of acute territorial stroke, mass effect, mass lesions, or edema is evident. The visualized portions of the skull base, midface, and calvarium demonstrate no abnormality. The paranasal sinuses are well aerated and free of significant disease. The tympanic and mastoid cavities appear normal. IMPRESSION: No acute intracranial abnormality or hemorrhage. Stable head CT. .
--- NOTE | 2017-05-15 17:48 | History & Physical Report ---
<Deyanira Liriano V - Last Filed: 05/15/17 17:43> History of Present Illness Date: 05/15/17 Chief complaint: atypical migraine, recurrent with neurologic symptoms HPI: Patient is a 67-year-old female who was brought to the emergency room today by EMS for the 2nd day in a row complaining of weakness, numbness, mental status change with headache. Noted yesterday to the emergency room with similar symptoms. She reported that yesterday she was driving her son to work and suddenly felt weakness in bilateral upper extremities. At that time. She pulled over and was unable to drive. EMS was contacted. She is brought to the emergency room or further evaluation was completed. Laboratory studies did reveal mild hypokalemia. Ankle x-ray was obtained. Given patient's 3 week history of pain which did reveal questionable lucency at the distal fibula. CT scan of the head was obtained showing no intracranial abnormality or hemorrhage. CT of the cervical spine revealed no trauma or narrowing. Symptoms resolved while in the emergency room. Patient was discharged home back to her baseline. Today she states that she was sitting in her home visiting with a friend and had a sudden pain between her eyebrows that was then followed by weakness and numbness in bilateral upper extremities. She states that she could tell her speech was slurred during this time and her friend noted she had facial drooping. EMS was again called and patient was brought to the emergency room for further treatment. Patient was given Toradol and oxycodone and observed for 4 hours in the ER. Symptoms again resolved while in the emergency room. Patient is concerned that these episodes. Will continue to happen and is worried that she has had a stroke and requests admission for further workup and observation. The hospitalist services were contacted and accepted patient for outpatient observation under the care of Dr Presley. She does request to be a full code Review of Systems Comprehensive ROS: completed and no additional positive findings except those as stated Review of systems: At time of examination, the only positive resume review of systems is left arm numbness that has been chronic for several weeks. All acute symptoms have resolved [facility] Medical History Chronic Back problem Depression Migraine headaches GERD (gastroesophageal reflux disease) Hypercholesterolemia Hypertension Hypothyroidism Spinal stenosis Colon polyps Surgical History: *Colonoscopy with polypectomy. *Tubal Ligation x2. *EGD. * Back Surgery x2 Family History: Mother-CVA. 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 Medications Home Medications Medication Instructions Recorded Confirmed Type Dicyclomine HCl 10 mg PO QID #0 08/08/09 05/15/17 History Levothyroxine Tab [Synthroid] 100 mcg PO DAILY #0 08/08/09 05/15/17 History Cetirizine HCl [Zyrtec] 10 mg PO DAILY #0 10/23/15 05/15/17 History Polyethylene Glycol 3350 1 dose PO DAILY #0 10/23/15 05/15/17 History Topiramate 200 mg PO HS #0 10/23/15 05/15/17 History Dexlansoprazole [Dexilant] 60 mg PO DAILY #0 11/15/16 05/15/17 History Potassium Chloride [K-Dur] 20 meq PO DAILY #0 11/15/16 05/15/17 History Citalopram Hydrobromide 20 mg PO DAILY #0 11/16/16 05/15/17 History [Citalopram HBr] Trazodone HCl 200 mg PO HS PRN #0 11/16/16 05/15/17 History Citalopram Hydrobromide [Celexa] 40 mg PO DAILY #0 tab 11/19/16 05/15/17 History Aspirin 650 mg PO BID PRN 05/15/17 05/15/17 History Cranberry Fruit Extract [Cranberry] 500 mg PO DAILY 05/15/17 05/15/17 History Losartan [Cozaar] 50 mg PO DAILY 05/15/17 05/15/17 History Allergies Allergy/AdvReac Type Severity Reaction Status Date / Time Quinolones Allergy Intermediate Verified 05/15/17 11:25 ciprofloxacin [From Cipro] Allergy Mild Verified 05/15/17 11:25 Exam Vital Signs: Temperature 97.5 F 05/15/17 11:25 Pulse Rate 72 05/15/17 11:25 Respiratory Rate 16 05/15/17 11:25 Blood Pressure 179/82 H 05/15/17 11:25 Pulse Oximetry 95 05/15/17 11:25 Telemetry Rhythm: Sinus Rhythm - Constitutional Present: no acute distress, well nourished, well developed - Routine HEENT Exam Head: Present: normocephalic Eye: Present: EOMI, PERRL ENT: Present: mucous membranes moist, dentition normal - Routine Neck Exam Present: full ROM - Routine Respiratory Exam Present: CTA bilaterally. Absent: wheezes - Routine Cardiovascular Exam Present: RRR, S1, S2, no murmur. Absent: murmur - Routine Abdominal Exam Present: soft, normoactive bowel sounds, non distended. Absent: tenderness - Routine Extremities Exam Present: no edema, full ROM, pulses intact, normal capillary refill Comments: Cam walker boot to LLE - Routine Back/Spine/Pelvis Exam Back/Spine: Present: full ROM - Routine Skin Exam Present: intact, dry, warm - Routine Neurological Exam Present: alert, oriented X3, CN II-XII intact, moving all extremities, normal tone, vision grossly intact, hearing grossly intact, normal speech. Absent: sensory deficit, motor deficit, pronator drift, altered mental status, facial asymmetry - Routine Psychiatric Exam Present: normal affect, normal thought process, cooperative Assessment and Plan (1) Neurological deficit, transient Current visit: Yes Status: Acute (2) Atypical migraine Current visit: Yes Status: Acute (3) History of migraine headaches Current visit: Yes Status: Chronic (4) Hypothyroidism Current visit: Yes Status: Chronic (5) GERD (gastroesophageal reflux disease) Current visit: Yes Status: Chronic (6) Depression Current visit: Yes Status: Chronic (7) HTN (hypertension) Current visit: Yes Status: Chronic Assessment and Plan: Impression Recurrent atypical migraine Transient neurologic deficit Migraine headaches Hypertension GERD Depression Plan Admit patient to outpatient observation under care of Dr. Presley for recurrent migraine headache with neurologic deficit. Will obtain the following laboratory studies on admission. CBC, BMP, TSH, magnesium, phosphorus. Obtain urinalysis to rule out acute infection Will obtain a fasting lipid panel tomorrow morning Obtain carotid Doppler and echocardiogram for further workup. Will also obtain MRI of the brain to rule out ischemia. Will monitor neurologic checks every 2 hours overnight Monitor patient on cardiac telemetry Normal saline at 100 ML per hour for gentle hydration Tomorrow will have PT and OT evaluate patient or weakness Home medications reconciled. Ultram placed on hold as this can cause confusion. Tylneol as needed for pain January request to be a full code and this orders written. Discuss further orders and plan of care with attending, Hospital Course Summary Disclaimer: The visit summary below is not to be considered part of the above Progress Note. Hospital Course: 05/15/17 Impression Recurrent atypical migraine Transient neurologic deficit Migraine headaches Hypertension GERD Depression Plan Admit patient to outpatient observation under care of Dr. Presley for recurrent migraine headache with neurologic deficit. Will obtain the following laboratory studies on admission. CBC, BMP, TSH, magnesium, phosphorus. Obtain urinalysis to rule out acute infection Will obtain a fasting lipid panel tomorrow morning Obtain carotid Doppler and echocardiogram for further workup. Will also obtain MRI of the brain to rule out ischemia. Will monitor neurologic checks every 2 hours overnight Monitor patient on cardiac telemetry Normal saline at 100 ML per hour for gentle hydration Tomorrow will have PT and OT evaluate patient or weakness Home medications reconciled. Ultram placed on hold as this can cause confusion. Tylneol as needed for pain January request to be a full code and this orders written. Discuss further orders and plan of care with attending, <Rekha Presley - Last Filed: 05/15/17 21:20> History of Present Illness Date: 05/15/17 [facility] Patient Stated Medical History Migraine Yes Hypertension Yes Gastroesophageal Reflux Yes Disease Other GI Yes: IBS Hx Urinary Tract Infection Yes: had last week, couple times this year Depression Yes Post Menopausal Yes Clinic Medical History (Last Reviewed 05/02/17 @ 14:22 by MAT Alexander) Back problem (Acute Medical) Colon polyps (Acute Medical) Depression (Acute Medical) GERD (gastroesophageal reflux disease) (Acute Medical) Hypercholesterolemia (Acute Medical) Hypertension (Acute Medical) Hypothyroidism (Acute Medical) Spinal stenosis (Acute Medical) Exam Vital Signs: Temperature 97.5 F 05/15/17 11:25 Pulse Rate 68 05/15/17 19:44 Respiratory Rate 16 05/15/17 11:25 Blood Pressure 179/82 H 05/15/17 11:25 Pulse Oximetry 95 05/15/17 11:25 Height/Weight/BMI: Height 1.65 m Weight 96.2 kg Body Mass Index 35.2 Results - Labs CBC & Chem 7: 05/15/17 17:58 05/15/17 17:58 Assessment and Plan (1) Atypical migraine Current visit: Yes Status: Acute (2) Neurological deficit, transient Current visit: Yes Status: Acute (3) History of migraine headaches Current visit: Yes Status: Chronic (4) Depression Current visit: Yes Status: Chronic (5) Hypothyroidism Current visit: Yes Status: Chronic (6) GERD (gastroesophageal reflux disease) Current visit: Yes Status: Chronic (7) HTN (hypertension) Current visit: Yes Status: Chronic Assessment and Plan: 05/15/2017-I reviewed this chart, the patient history, and the [employer]'s/PA's documented findings as above. We discussed and formulated the assessment and plan as above with the additions below.-Dr. Presley Patient was seen in her room accompanied by her son and [id number]. The patient states that yesterday she was driving her son to work and when she was on the highway she started feeling nauseated, she felt like she had ice water in her veins, and her arms became weak. She pulled over the car and called 911. When EMS arrived she states her arms were paralyzed and her speech was slurred. She did not have a headache then. She states she's never had anything like this before. She was brought into the emergency room and underwent a workup including a CT head. Her symptoms completely resolved and it was thought that she might have had an anxiety attack. She was dismissed to home. She states that today she was awoken from sleep around 10 AM with a severe headache between her eyes. She was able to call if friend who came to her house and found that she had slurred speech and a droopy face, the patient does not know which side of her face was droopy. She felt confused and again her arms were weak and she had difficulty keeping her eyes open. She had nausea today as well. She states it's not unusual for her to sleep in until 10 AM. She was brought into the emergency room and states that her headache gradually went away. She also states she's had some numbness and tingling in the left arm for a few weeks. She has some chronic low back pain and some chronic numbness and tingling in her legs. She has had back surgery in the past and is scheduled for reevaluation regarding her back issues. She states that she is not taking any new medications. She states she was on an antibiotic last week for UTI but has finished that medication. She states she's taken that medicine in the past without difficulties. She states her UTI symptoms are now gone. She has some mild chronic neck pain. She takes aspirin daily for her back pain. She states she has never had symptoms like she had over the past 2 days and was very worried that she was having a stroke. On exam she is alert and oriented and in no acute distress. HEENT reveals sclerae to be anicteric and pupils are equal round and reactive. Extraocular movements are intact. Oropharynx is moist. Neck is supple. Chest is clear to auscultation. Cardiovascular reveals regular rate and rhythm without murmur. Abdomen is soft, obese nontender and nondistended with positive bowel sounds. Extremities are free of edema. Skin is warm and dry and without rashes. Neurologic reveals cranial nerves II through XII to be grossly intact. Speech is fluent and without slurring. Motor strength is 5 over 5 and equal in the upper and lower extremities. Impression Migraine headache-resolved Transient Bilateral arm weakness-unknown etiology Transient slurred speech-unknown etiology Nausea-resolved History of GERD Depression Hypertension-blood pressure is currently elevated at 164/82. She did not take her Cozaar/hydrochlorothiazide this morning. Plan We'll obtain neuro checks every 2 hours. Continue aspirin daily for now. Obtain carotid Dopplers and echo. Consider MRI of the brain. Consult Dr. Mast. Psychiatric consult has been done and reviewed. Resume patient's home meds except for tramadol. Hospital Course Summary Disclaimer: The visit summary below is not to be considered part of the above Progress Note.
[2017-05-15] MEDS ORDERED: NS 1,000 ML IV SCH (18:00)
[2017-05-15] MEDS ORDERED: TRAZODONE 100 MG PO PRN (18:01)
[2017-05-15] MEDS ORDERED: ASPIRIN 325 MG TABLET PO PRN (18:01)
[2017-05-15 18:26] VITALS: BMI 35.2
[2017-05-15] MEDS: ACETAMINOPHEN 500 MG TABLET PO SCH ×2 (19:32→23:04)
--- NOTE | 2017-05-15 20:19 | Neuropsychiatric Consult ---
[facility] HPI Date: 05/15/17 Reason for Consultation: Depression Start Time: 18:00 Stop Time: 18:30 History of Present Illness: HPI: 67 Y/O CF admitted from the ED for two episodes over the last two days that involved some neurologic symptoms. Work up was done and so far has been negative. Psychiatry was consulted to see if there could be a psychiatric cause for the unexplained neurologic symptoms. The pt and two of her sons were interviewed independently. Pt states she was doing well until yesterday when these symptoms started. She denies any current stressors and denies feeling anxious when symptoms started. Sons agree that pt has been doing well. They are not aware of any current stressors which could be leading to an increase in anxiety or depression. PSYCH ROS: Pt states recently her mood has been stable. She reports some issues with sleep due to pain but this is chronic. She denies any other depressive symptoms. She denies any anxiety. She denies lupillo or psychosis. She is alert and oriented x 4 and her cognition appears intacted. PAST PSYCH: PT has been treated for depression since the . She states she has been on Celexa since that time and has been stable. She denies ever trying to harm herself and has never been in a psychiatric hospital. She has never experienced symptoms like this before. She is currently seen at every three months for medications. She is currently on Celexa and Trazodone. [facility] Patient Stated Medical History Migraine Yes Hypertension Yes Gastroesophageal Reflux Yes Disease Other GI Yes: IBS Hx Urinary Tract Infection Yes: had last week, couple times this year Depression Yes Post Menopausal Yes Clinic Medical History (Last Reviewed 05/02/17 @ 14:22 by Tonya Clements Travis) Back problem (Acute Medical) Colon polyps (Acute Medical) Depression (Acute Medical) GERD (gastroesophageal reflux disease) (Acute Medical) Hypercholesterolemia (Acute Medical) Hypertension (Acute Medical) Hypothyroidism (Acute Medical) Spinal stenosis (Acute Medical) Surgical History: *Colonoscopy with polypectomy. *Tubal Ligation x2. *EGD. * Back Surgery x2 - Social History Smoking status: Never smoker Review of Systems - Psychiatric Psychiatric: Present: abnormal sleep pattern Mental Status Exam Vitals: Last Vital Signs Temp 97.5 F 05/15/17 11:25 Pulse 68 05/15/17 19:44 Resp 16 05/15/17 11:25 BP 179/82 H 05/15/17 11:25 Pulse Ox 95 05/15/17 11:25 Height: 1.65 m Weight: 96.2 kg - Mental Status Exam Muscle Strength/Tone: Normal Dressing: Casual Grooming: Good Attitude: Cooperative Motor Activity: Normal Eye Contact: Good Speech: Normal Volume: Normal Rhythm: Appropriate Rhythm Orientation: Oriented X4 Mood: Euthymic Affect: Bright Rate of Thoughts: Appropriate Rate Thought Organization: Organized Associations: Intact Abstract Reasoning: Intact, able to abstract Computation: Intact Thought Content: Normal Perception/Psychotic: Perception Normal Fund of Knowledge: Appropriate Memory: Grossly Intact Suicidal Ideation: Denies Homicidal Ideation: Denies Insight: Limited Judgement: Limited Impulse Control: Fair - Laboratory Result Diagrams: 05/15/17 17:58 05/15/17 17:58 Laboratory Results - last 24 hr 05/15/17 05/15/17 17:58 17:58 WBC 9.1 RBC 4.83 Hgb 14.2 Hct 41.9 MCV 86.7 MCH 29.4 MCHC 33.9 RDW Std Deviation 43.4 Plt Count 247 MPV 10.9 Immature Gran % (Auto) 0.2 Neut % (Auto) 66.9 H Lymph % (Auto) 26.4 [place] % (Auto) 5.4 Eos % (Auto) 0.3 Baso % (Auto) 0.8 Neut # 6.1 Lymph # 2.4 [place] # 0.5 Eos # 0.0 Baso # 0.1 Abs Immat Gran (auto) 0.02 Turbidity < 20 Sodium 145 H Potassium 3.8 D Chloride 111 H Carbon Dioxide 23 Anion Gap 11 BUN 9.0 Creatinine 0.8 GFR Calculation 72 BUN/Creatinine Ratio 11 Glucose 91 Calculated Osmolality 278 Calcium 9.0 Phosphorus 4.1 Magnesium 2.0 Total Bilirubin 0.70 Icterus Index < 2 AST 15 ALT 32 Alkaline Phosphatase 70 Total Protein 6.6 Albumin 3.9 Globulin 2.7 Albumin/Globulin Ratio 1.4 TSH 0.25 L Specimen Hemolysis < 15 Assessment and Plan (1) Major depressive disorder Qualifiers: Major depression recurrence: recurrent Major depression episode severity: mild Current visit: Yes Status: Acute Continue medical management. According to patient and family there are no current stressors which would possibly lead to a psychiatric cause for the current symptoms. PT denies depression or anxiety and family agrees pt has been stable. PT has not had similar episodes in the past. I did discuss with pt my concerns with the high dose of Celexa particularly due to her age and the risk of QT prolongation. PT states she has been on this dose for many years and understands the risk. Would continue current psych meds and we well continue to follow.
[2017-05-15] MEDS ORDERED: TOPIRAMATE 100 MG PO SCH (21:00)
[2017-05-15] MEDS ORDERED: TOPIRAMATE 200 MG PO SCH (21:00)
[2017-05-15] MEDS ORDERED: LOSARTAN 50 MG TABLET PO ONE (21:07)
[2017-05-15] MEDS: DICYCLOMINE 10 MG PO SCH (21:21)
[2017-05-15] MEDS: DEXILANT 60 MG PO SCH (21:21)
[2017-05-15] MEDS: ASPIRIN 325 MG TABLET PO SCH (21:21)
[2017-05-16] MEDS: ACETAMINOPHEN 500 MG TABLET PO SCH ×4 (02:21→13:58)
[2017-05-16] MEDS: DICYCLOMINE 10 MG PO SCH ×3 (06:00→17:25)
[2017-05-16] MEDS ORDERED: **POM**LEVOTHYROXINE 100 MCG TABLET PO SCH (06:30)
[2017-05-16] MEDS ORDERED: OMEPRAZOLE 20 MG CAPSULE PO SCH (06:30)
[2017-05-16] MEDS ORDERED: SALINE FLUSH 10ml SYRINGE IV PRN (07:40)
[2017-05-16] MEDS ORDERED: POTASSIUM CHLORIDE 20 MEQ PO SCH (08:00)
--- NOTE | 2017-05-16 08:09 | Ultrasound Report ---
Indication: possible TIA PROCEDURE: US carotid doppler BI: TECHNIQUE: Grayscale, color and duplex Doppler imaging was performed of the carotid systems bilaterally. Velocities in cm/sec - validated velocity measurements with angiographic measurements, velocity criteria are extrapolated from diameter data as defined by the Society of Radiologists in Ultrasound Consensus Conference Radiology 2003; 229;340-346. RIGHT: PSV ICA 95.5 EDV ICA 33.9 PSV CCA 80.8 EDV CCA 16.7 PSV ECA 131 ICA Diameter reduction 10%-30% (1.0-1.2 PSV<110)% LEFT: PSV ICA 117 EDV ICA 40.4 PSV CCA 79.5 EDV CCA 40.4 PSV ECA 84 ICA Diameter reduction 20%-40% (1.2-1.4 [id number])% The right vertebral artery is patent with cephalic flow. The left vertebral artery is patent with cephalic flow. Mild plaque at both carotid bifurcations. IMPRESSION: No hemodynamically significant carotid stenosis. .
[2017-05-16] MEDS ORDERED: POLYETHYL GLYCOL 3350 17gm PACKET PO SCH (09:00)
[2017-05-16] MEDS ORDERED: CITALOPRAM 40 MG PO SCH (09:00)
[2017-05-16] MEDS ORDERED: NON-FORMULARY MEDICATION 1 EACH EACH (Dexlansoprazole [Dexilant] 60 MG) PO SCH (09:00)
[2017-05-16] MEDS ORDERED: NON-FORMULARY MEDICATION 1 EACH EACH (Cetirizine Hcl [Zyrtec] 10 MG) PO SCH (09:00)
[2017-05-16] MEDS ORDERED: NON-FORMULARY MEDICATION 1 EACH EACH (Cranberry Fruit Extract [Cranberry] 500 MG) PO SCH (09:00)
[2017-05-16] MEDS ORDERED: CITALOPRAM 20 MG PO SCH (09:00)
[2017-05-16] MEDS ORDERED: DEXILANT 60 MG PO SCH (09:00)
[2017-05-16] MEDS ORDERED: CETIRIZINE 10 MG PO SCH (09:00)
[2017-05-16] MEDS ORDERED: LOSARTAN 50 MG TABLET PO SCH (09:00)
[2017-05-16] MEDS: ASPIRIN 325 MG TABLET PO SCH (10:25)
[2017-05-16] MEDS: DEXILANT 60 MG PO SCH ×2 (10:26→16:11)
[2017-05-16] MEDS ORDERED: GADOBUTROL 10mMol/10ml INJECTION IVP ONE (11:43)
[2017-05-16] MEDS ORDERED: SALINE FLUSH 10ml SYRINGE ONE (11:44)
--- NOTE | 2017-05-16 13:12 | Magnetic Resonance Report ---
Indication: INTERMITTENT BILATERAL ARM WEAKNESS, SLURRED SPEECH R/O CVA PROCEDURE: MR head/brain/ang head wo/w: Encounter: Initial Comparison: Head CT dated May 15, 2017 Technique: Multiplanar, multisequence, MR imaging of the head with and without contrast was acquired. MRA imaging of the head without contrast was acquired. Maximum intensity projection (MIP) reformatted images were produced. 3-dimensional volume rendered imaging of the [place] was performed by the technologist on a dedicated workstation. Contrast: 8 mL of Gadavist Findings: MRI head: The ventricles are of normal size, shape, and contour for the patient's age. There are small nonspecific punctate areas of T2-weighted and T2 FLAIR weighted signal abnormality in the deep frontoparietal white matter that most likely represent small vessel ischemic disease. This is of a degree that is upper limits of normal for the patient's age. These lesions do not enhance. The largest lesion in the right frontal white matter on axial image #13 measures 0.7 cm in diameter. Increased T1 signal intensity within both thalami consistent with the calcification or mineralization seen on CT. The brain stem, cerebellum, and cerebral hemispheres otherwise have a normal morphologic appearance as well as MR signal intensity on all pulse sequences. Following intravenous administration of contrast, no areas of abnormal enhancement are evident. There are no areas of restricted diffusion on diffusion weighted imaging to suggest an acute infarct. There is no evidence of an intracranial mass lesion, intracranial hemorrhage, or hydrocephalus. The visualized portions of the orbits, calvarium, paranasal sinuses, and skull base demonstrate no significant abnormality. MRA head: The intracranial portions of the vertebral arteries, internal carotid arteries, and their major branches show no significant stenosis or other vascular anomaly. No aneurysms or vascular malformations are evident. origin of the right posterior cerebral artery, a normal anatomic variant. Predominantly origin of the left posterior cerebral artery is well. Isolated left origin of the anterior cerebral artery. Impression: 1. MRI head: Nonspecific white matter disease at the upper range of normal for the patient's age probably due to chronic microvascular ischemia. No acute intracranial abnormality. 2. MRA head: Negative exam. No evidence of aneurysm or flow-limiting arterial stenosis. .
[2017-05-16] MEDS ORDERED: CLOPIDOGREL 75 MG TABLET PO SCH (14:15)
[2017-05-16 14:24] VITALS: TEMP 96.6
--- NOTE | 2017-05-16 14:32 | Progress Note ---
<Gena Man - Last Filed: 05/16/17 14:49> Subjective: Patient seen today sitting in her bed. She reports she is doing well. She states still has "a little bit" of a headache but it is much better than yesterday. She's not had any further weakness in her arms. No slurred speech. No chest pain or shortness of breath. She is eating well. She is concerned about going home because she had 2 trips by ambulance to the ER in a 24-hour period. She also complains of numbness that she states she's had for months in the left hand and arm. She points to the fourth and fifth digits and up the ulnar side of the arm when talking about the numbness. She states she has some neck pain as well. Objective Vital signs: Temperature 96.6 F L 05/16/17 14:23 Pulse Rate 73 05/16/17 14:23 Respiratory Rate 16 05/16/17 14:23 Blood Pressure 116/65 05/16/17 14:23 Pulse Oximetry 91 05/16/17 14:23 Height/Weight/BMI: Height 1.65 m Weight 98.3 kg Body Mass Index 35.2 - Constitutional Present: no acute distress, well nourished, well developed - Routine HEENT Exam Head: Present: normocephalic, atraumatic - Routine Respiratory Exam Present: CTA bilaterally. Absent: wheezes - Routine Cardiovascular Exam Present: RRR, S1, S2. Absent: murmur - Routine Abdominal Exam Present: soft, normoactive bowel sounds, non distended. Absent: tenderness - Routine Extremities Exam Present: normal capillary refill - Routine Skin Exam Present: dry, warm - Routine Neurological Exam Present: alert, oriented X3 - Routine Lymphatic Exam Lymphatic: Absent: adenopathy - Routine Psychiatric Exam Present: normal affect Results - Labs CBC & Chem 7: 05/15/17 17:58 05/15/17 17:58 - Echocardiogram Echocardiogram: Echocardiogram results pending at time of dictation - Imaging and Cardiology CT scan - head Additional comments: CT head IMPRESSION: No acute intracranial abnormality or hemorrhage. Stable head CT. CT cervical spine IMPRESSION: No acute traumatic abnormality of the cervical spine. Brain MRI and MRA Impression: 1. MRI head: Nonspecific white matter disease at the upper range of normal for the patient's age probably due to chronic microvascular ischemia. No acute intracranial abnormality. 2. MRA head: Negative exam. No evidence of aneurysm or flow-limiting arterial stenosis. Assessment and Plan (1) Atypical migraine Current visit: Yes Status: Acute (2) Neurological deficit, transient Current visit: Yes Status: Acute (3) History of migraine headaches Current visit: Yes Status: Chronic (4) Depression Current visit: Yes Status: Chronic (5) Hypothyroidism Current visit: Yes Status: Chronic (6) GERD (gastroesophageal reflux disease) Current visit: Yes Status: Chronic (7) HTN (hypertension) Current visit: Yes Status: Chronic Assessment and Plan: Impression Migraine headache-resolved Transient Bilateral arm weakness-unknown etiology Left upper extremity numbness-rule out ulnar neuropathy versus C-spine radiculopathy Transient slurred speech-unknown etiology Nausea-resolved Hypothyroidism-currently slightly over replaced History of GERD Depression Hypertension-blood pressure is currently elevated at 164/82. She did not take her Cozaar/hydrochlorothiazide this morning. Plan Will likely discharge today. All testing is back, with the exception of the echocardiogram, and is negative. Dr. Mast recommends patient take Plavix instead of aspirin given her recent symptoms. He is happy to see her in outpatient follow-up. Follow-up with her PCP within a week. Encouraged her to discuss her left upper extremity numbness with her primary care provider to proceed with outpatient testing as he deems necessary. Will have Dr. Glass address her abnormal TSH level at her follow-up visit and he can adjust dosage if he deems necessary. Hospital Course Summary Disclaimer: The visit summary below is not to be considered part of the above Progress Note. Hospital Course: 05/15/17 Impression Recurrent atypical migraine Transient neurologic deficit Migraine headaches Hypertension GERD Depression Plan Admit patient to outpatient observation under care of Dr. Presley for recurrent migraine headache with neurologic deficit. Will obtain the following laboratory studies on admission. CBC, BMP, TSH, magnesium, phosphorus. Obtain urinalysis to rule out acute infection Will obtain a fasting lipid panel tomorrow morning Obtain carotid Doppler and echocardiogram for further workup. Will also obtain MRI of the brain to rule out ischemia. Will monitor neurologic checks every 2 hours overnight Monitor patient on cardiac telemetry Normal saline at 100 ML per hour for gentle hydration Tomorrow will have PT and OT evaluate patient or weakness Home medications reconciled. Ultram placed on hold as this can cause confusion. Tylneol as needed for pain January request to be a full code and this orders written. Discuss further orders and plan of care with attending, <FernandezRekha L - Last Filed: 05/16/17 18:20> Objective Vital signs: Temperature 96.6 F L 05/16/17 14:23 Pulse Rate 69 05/16/17 17:42 Respiratory Rate 20 05/16/17 17:42 Blood Pressure 127/75 05/16/17 17:42 Pulse Oximetry 93 05/16/17 17:42 Height/Weight/BMI: Height 1.65 m Weight 98.3 kg Body Mass Index 35.2 Results - Labs CBC & Chem 7: 05/15/17 17:58 05/15/17 17:58 Assessment and Plan (1) Neurological deficit, transient Current visit: Yes Status: Acute (2) History of migraine headaches Current visit: Yes Status: Chronic (3) Depression Current visit: Yes Status: Chronic (4) Hypothyroidism Current visit: Yes Status: Chronic (5) GERD (gastroesophageal reflux disease) Current visit: Yes Status: Chronic (6) HTN (hypertension) Current visit: Yes Status: Chronic Hospital Course Summary Disclaimer: The visit summary below is not to be considered part of the above Progress Note. Hospital Course: 05/16/17 18:20 I've seen and examined the patient today. Please see today's discharge summary for further information.
[2017-05-16 17:43] VITALS: BP 127/75; PULSE 69; RESP 20; O2SAT 93
--- NOTE | 2017-05-16 17:50 | Discharge Summary ---
Discharge Information Date of admission: 05/15/17 17:25 Anticipated date of discharge: 05/16/17 Attending Physician: Rekha Presley MD Primary care physician: Chris Glass DO Consults: 05/15/17 18:13 Consulting Provider: Marian Conde Psychiatry - Discharge Diagnosis (1) Neurological deficit, transient Status: Acute (2) History of migraine headaches Status: Chronic (3) Depression Status: Chronic (4) Hypothyroidism Status: Chronic Discharge Diagnosis: TSH is 0.25. Patient is on levothyroxine. She may need her dose adjusted by primary care provider (5) GERD (gastroesophageal reflux disease) Status: Chronic (6) HTN (hypertension) Status: Chronic - Procedures Procedures: None - Laboratory Labs: 05/15/17 17:58 05/15/17 17:58 TSH is 0.25 - Radiology Radiology: Carotid Dopplers The right vertebral artery is patent with cephalic flow. The left vertebral artery is patent with cephalic flow. Mild plaque at both carotid bifurcations. IMPRESSION: No hemodynamically significant carotid stenosis. CT head without contrast MPRESSION: No acute intracranial abnormality or hemorrhage. Stable head CT. MRI brain with and without contrast, MRA head without contrast Date of Exam: 05/16/17 Ordering Provider: Rekha Presley MD Type of Exam(s): MR head/brain/ang head wo/w Reason for Exam(s): INTERMITTENT BILATERAL ARM WEAKNESS, SLURRED SPEECH R/O CVA Indication: INTERMITTENT BILATERAL ARM WEAKNESS, SLURRED SPEECH R/O CVA PROCEDURE: MR head/brain/ang head wo/w: Encounter: Initial Comparison: Head CT dated May 15, 2017 Technique: Multiplanar, multisequence, MR imaging of the head with and without contrast was acquired. MRA imaging of the head without contrast was acquired. Maximum intensity projection (MIP) reformatted images were produced. 3-dimensional volume rendered imaging of the [place] was performed by the technologist on a dedicated workstation. Contrast: 8 mL of Gadavist Findings: MRI head: The ventricles are of normal size, shape, and contour for the patient's age. There are small nonspecific punctate areas of T2-weighted and T2 FLAIR weighted signal abnormality in the deep frontoparietal white matter that most likely represent small vessel ischemic disease. This is of a degree that is upper limits of normal for the patient's age. These lesions do not enhance. The largest lesion in the right frontal white matter on axial image #13 measures 0.7 cm in diameter. Increased T1 signal intensity within both thalami consistent with the calcification or mineralization seen on CT. The brain stem, cerebellum, and cerebral hemispheres otherwise have a normal morphologic appearance as well as MR signal intensity on all pulse sequences. Following intravenous administration of contrast, no areas of abnormal enhancement are evident. There are no areas of restricted diffusion on diffusion weighted imaging to suggest an acute infarct. There is no evidence of an intracranial mass lesion, intracranial hemorrhage, or hydrocephalus. The visualized portions of the orbits, calvarium, paranasal sinuses, and skull base demonstrate no significant abnormality. MRA head: The intracranial portions of the vertebral arteries, internal carotid arteries, and their major branches show no significant stenosis or other vascular anomaly. No aneurysms or vascular malformations are evident. origin of the right posterior cerebral artery, a normal anatomic variant. Predominantly origin of the left posterior cerebral artery is well. Isolated left origin of the anterior cerebral artery. Impression: 1. MRI head: Nonspecific white matter disease at the upper range of normal for the patient's age probably due to chronic microvascular ischemia. No acute intracranial abnormality. 2. MRA head: Negative exam. No evidence of aneurysm or flow-limiting arterial stenosis. . Echocardiogram Official report is pending. Verbal report from Dr. Dockery shows ejection fraction of 66%, left ventricular hypertrophy, mild valvular disease. History of Present Illness HPI: Patient is a 67-year-old female who was brought to the emergency room today by EMS for the 2nd day in a row complaining of weakness, numbness, mental status change with headache. Noted yesterday to the emergency room with similar symptoms. She reported that yesterday she was driving her son to work and suddenly felt weakness in bilateral upper extremities. At that time. She pulled over and was unable to drive. EMS was contacted. She is brought to the emergency room or further evaluation was completed. Laboratory studies did reveal mild hypokalemia. Ankle x-ray was obtained. Given patient's 3 week history of pain which did reveal questionable lucency at the distal fibula. CT scan of the head was obtained showing no intracranial abnormality or hemorrhage. CT of the cervical spine revealed no trauma or narrowing. Symptoms resolved while in the emergency room. Patient was discharged home back to her baseline. Today she states that she was sitting in her home visiting with a friend and had a sudden pain between her eyebrows that was then followed by weakness and numbness in bilateral upper extremities. She states that she could tell her speech was slurred during this time and her friend noted she had facial drooping. EMS was again called and patient was brought to the emergency room for further treatment. Patient was given Toradol and oxycodone and observed for 4 hours in the ER. Symptoms again resolved while in the emergency room. Patient is concerned that these episodes. Will continue to happen and is worried that she has had a stroke and requests admission for further workup and observation. The hospitalist services were contacted and accepted patient for outpatient observation under the care of Dr Presley. She does request to be a full code Objective Vital signs: Temperature 96.6 F L 05/16/17 14:23 Pulse Rate 69 05/16/17 17:42 Respiratory Rate 20 05/16/17 17:42 Blood Pressure 127/75 05/16/17 17:42 Pulse Oximetry 93 05/16/17 17:42 Height/Weight/BMI: Height 1.65 m Weight 98.3 kg Body Mass Index 35.2 Hospital Course This is a general summary of the patient's hospital course. For more details refer to the complete medical record. Hospital course: 05/15/2017 The patient was seen in her room accompanied by her son and [id number]. The patient states that yesterday she was driving her son to work and when she was on the highway she started feeling nauseated, she felt like she had ice water in her veins, and her arms became weak. She pulled over the car and called 911. When EMS arrived she states her arms were paralyzed and her speech was slurred. She did not have a headache then. She states she's never had anything like this before. She was brought into the emergency room and underwent a workup including a CT head. Her symptoms completely resolved and it was thought that she might have had an anxiety attack. She was dismissed to home. She states that today she was awoken from sleep around 10 AM with a severe headache between her eyes. She was able to call if friend who came to her house and found that she had slurred speech and a droopy face, the patient does not know which side of her face was droopy. She felt confused and again her arms were weak and she had difficulty keeping her eyes open. She had nausea today as well. She states it's not unusual for her to sleep in until 10 AM. She was brought into the emergency room and states that her headache gradually went away. She also states she's had some numbness and tingling in the left arm for a few weeks. She has some chronic low back pain and some chronic numbness and tingling in her legs. She has had back surgery in the past and is scheduled for reevaluation regarding her back issues. She states that she is not taking any new medications. She states she was on an antibiotic last week for UTI but has finished that medication. She states she's taken that medicine in the past without difficulties. She states her UTI symptoms are now gone. She has some mild chronic neck pain. She takes aspirin daily for her back pain. She states she has never had symptoms like she had over the past 2 days and was very worried that she was having a stroke. On exam she is alert and oriented and in no acute distress. HEENT reveals sclerae to be anicteric and pupils are equal round and reactive. Extraocular movements are intact. Oropharynx is moist. Neck is supple. Chest is clear to auscultation. Cardiovascular reveals regular rate and rhythm without murmur. Abdomen is soft, obese nontender and nondistended with positive bowel sounds. Extremities are free of edema. Skin is warm and dry and without rashes. Neurologic reveals cranial nerves II through XII to be grossly intact. Speech is fluent and without slurring. Motor strength is 5 over 5 and equal in the upper and lower extremities. Impression Migraine headache-resolved Transient Bilateral arm weakness-unknown etiology Transient slurred speech-unknown etiology Nausea-resolved History of GERD Depression Hypertension-blood pressure is currently elevated at 164/82. She did not take her Cozaar/hydrochlorothiazide this morning. Plan We'll obtain neuro checks every 2 hours. Continue aspirin daily for now. Obtain carotid Dopplers and echo. Consider MRI of the brain. Consult Dr. Mast. Psychiatric consult has been done and reviewed. Resume patient's home meds except for tramadol. The patient was seen by Dr. Burton Conde, psychiatrist during this hospital stay. Please see his recommendations below Assessment and Plan (1) Major depressive disorder Qualifiers: Major depression recurrence: recurrent Major depression episode severity: mild Current visit: Yes Status: Acute Continue medical management. According to patient and family there are no current stressors which would possibly lead to a psychiatric cause for the current symptoms. PT denies depression or anxiety and family agrees pt has been stable. PT has not had similar episodes in the past. I did discuss with pt my concerns with the high dose of Celexa particularly due to her age and the risk of QT prolongation. PT states she has been on this dose for many years and understands the risk. Would continue current psych meds and we well continue to follow. The patient was seen again on 05/16/2017. She had had no recurrence of her upper extremity weakness or speech difficulties. She had slept well the night before. Vital signs have been stable. She underwent echocardiogram which was essentially normal. MRI brain was essentially normal. MRA of the brain was essentially normal. Carotid Dopplers showed no significant stenosis. Dr. Mast was out of town and unavailable for consultation but I did speak with him on the phone. He did recommend the testing above. He agreed with change to Plavix instead of aspirin. He was concerned for possible vascular event or an event causing low blood pressure that could have caused her bilateral arm weakness and slurred speech. He also stated that less likely would be narcolepsy or cataplexy causing her symptoms above. She does admit to some excessive daytime sleepiness. She has never had sleep paralysis. He stated that if the above studies were normal, the patient could be discharged and follow-up with neurology as an outpatient. On exam today she is alert and oriented and in no acute distress. Neurologic exam is normal. Chest is clear to auscultation. Cardiac vascular reveals a regular rate and rhythm. Abdomen is soft and nontender. Extremities are free of edema. I discussed the above recommendations with the patient and her son and they are in agreement. The cause of her episodic weakness, slurred speech and drowsiness is not known at this time. Cannot rule out stroke. We'll start Plavix 75 mg once daily Stop aspirin She states she has a prescription for atorvostatin recommended by Dr. Glass, but she had not filled it. She states she will get that filled. She is not to drive until she follows up with Dr. Glass or neurology and obtains clearance. She is to call 911 if she has further symptoms of stroke. Lipid panel is pending and she should follow-up with Dr. Glass TSH is mildly suppressed. She should follow-up on this with Dr. Glass Discharge Plan - Med Rec/Dispo Referrals/Follow Up: Chris Glass DO [Primary Care Provider] - 1 Week Additional Instructions: Follow-up with neurology Restart your lipitor/Atorvostatin as recommended by Dr Glass Your cholesterol panel done at [facility] is pending. Please follow- up on this with Dr. Glass Prescriptions: New Clopidogrel [Plavix] 75 mg PO DAILY #30 tab Continue Dicyclomine HCl 10 mg PO QID #0 Dexlansoprazole [Dexilant] 60 mg PO DAILY #0 Trazodone HCl 200 mg PO HS PRN #0 PRN Reason: INSOMNIA Citalopram Hydrobromide [Celexa] 40 mg PO DAILY #0 tab Tramadol [Ultram] 50 mg PO Q6HR PRN #20 tab PRN Reason: Pain Cranberry Fruit Extract [Cranberry] 500 mg PO DAILY Levothyroxine Tab [Synthroid] 100 mcg PO DAILY #0 Cetirizine HCl [Zyrtec] 10 mg PO DAILY #0 Topiramate 200 mg PO HS #0 Polyethylene Glycol 3350 1 dose PO DAILY #0 Potassium Chloride [K-Dur] 20 meq PO DAILY #0 Citalopram Hydrobromide [Citalopram HBr] 20 mg PO DAILY #0 Losartan/Hctz 50/12.5 50 mg PO DAILY Discontinued Aspirin 650 mg PO BID PRN PRN Reason: Pain Discharge Instructions/Outpatient Orders: Final Provider Discharge Instructions Location: Determined By Patient - Disposition 01 Discharged Home, Self-Care
--- NOTE | 2017-05-19 08:54 | Echocardiogram ---
DATE OF PROCEDURE May 15, 2017 REFERRING PHYSICIAN Rekha Presley MD This is a two-dimensional echo with spectral Doppler, color-flow and M-mode. It was obtained in a patient with TIA. Left atrial dimension is normal. Left ventricle end-diastolic dimension is normal. Left ventricle wall thickness increased. LV systolic function is normal with ejection fraction of 66%. Right atrium is normal. Right ventricle is normal. Aortic root dimension is normal. Mitral valve is morphologically normal with mild mitral regurgitation. Aortic valve she is a trileaflet structure with no stenosis or insufficiency. Tricuspid valve shows mild tricuspid regurgitation with estimated pulmonary artery systolic pressure of 35. Pulmonary valve shows no pulmonary insufficiency. There is no pericardial effusion. Grossly there is no intracardiac thrombus or mass. IMPRESSION 1. Normal LV systolic function with ejection fraction of 66%. 2. Concentric left ventricular hypertrophy. 3. Grossly no intracardiac thrombus or mass. 4. Mild mitral regurgitation. 5. Mild tricuspid regurgitation with estimated pulmonary artery systolic pressure of 35. 6. Mild pulmonary insufficiency. [facility]
== END 2017-05-16 19:30 | disposition home or self-care (01) ==
LOC: ED 11:21 → MED 11:21
PROVIDERS: ADMIT Internal Medicine; ATTEND Internal Medicine